=== PATIENT | male | born 2000 | race Caucasian/White ===

== ENCOUNTER 2023-02-11 12:19 | Emergency (ER) | payer OTHER, SELFPAY ==
[2023-02-11 12:28] VITALS: BP 128/74; PULSE 84; RESP 16; TEMP 37; O2SAT 100; BMI 32.6
--- NOTE | 2023-02-11 13:08 | ED_ITS ---
HPI - General Adult General Chief complaint: Ear/Nose/Throat Problem Stated complaint: L ear pain Time Seen by Provider: 02/11/23 13:01 Source: patient Mode of arrival: ambulatory Limitations: no limitations History of Present Illness HPI narrative: 22-year-old male presenting today concerned about left-sided ear pain. Pain is been present for 2 days. It is not constant. It comes and goes. It is made worse by chewing. He denies any changes in his hearing and no ear drainage. No fevers or chills. No sore throat. No trauma to the ear. Related Data Home Medications Medication Instructions Recorded Confirmed loratadine 10 mg tablet (Claritin) 10 mg PO DAILY 02/11/23 02/11/23 Allergies Allergy/AdvReac Type Severity Reaction Status Date / Time No Known Drug Allergies Allergy Verified 02/11/23 12:27 Review of Systems Status of ROS: Reports: 10 or more systems reviewed and unremarkable except as noted in History and below Exam Narrative: Exam Narrative: Well-nourished well-developed patient in no acute distress. Alert and oriented. Answers questions appropriately. Mood and affect are appropriate. Thoughts a re goal oriented and rational. No tangential or magical thinking noted. Patient speaks in full sentences without needing to catch his breath. Voice sounds normal, is not congested. HEENT: Normocephalic atraumatic. Pupils are equally round reactive to light. Extraocular muscles are intact. Conjunctivae are moist without any icterus noted. Moist mucous membranes. Posterior pharynx is normal. Neck is soft without any lymphadenopathy or thyromegaly. No masses are appreciated. TMs are clear bilaterally. Ear canals are normal without swelling or erythema. No foreign bodies are visualized in the ear canals. He has mild discomfort with opening and closing the jaw. Skin: Well perfused without any obvious rashes. Const: Vital Signs, click to edit/add: Vital Signs - 24 hr 02/11/23 12:28 Temperature 98.6 F Pulse Rate [Pulse Oximeter] 84 Respiratory Rate 16 Blood Pressure [Ri ght Upper Arm] 128/74 Pulse Oximetry 100 Oxygen Delivery Me thod Room Air Course Vital Signs Vital signs: Initial Vital Signs Temperature 98.6 F 02/11/23 12:28 Temperature Source Temporal Artery Scan 02/11/23 12:28 Pulse Rate 84 02/11/23 12:28 Respiratory Rate 16 02/11/23 12:28 Blood Pressure 128/74 02/11/23 12:28 Blood Pressure Mean 92 02/11/23 12:28 Blood Pressure Position Sitting 02/11/23 12:28 Pulse Oximetry 100 02/11/23 12:28 Oxygen Delivery Method Room Air 02/11/23 12:28 Vital Signs Temperature 98.6 F 02/11/23 12:28 Pulse Rate 84 02/11/23 12:28 Respiratory Rate 16 02/11/23 12:28 Blood Pressure 128/74 02/11/23 12:28 Pulse Oximetry 100 02/11/23 12:28 Oxygen Delivery Method Room Air 02/11/23 12:28 Temperature 98.6 F 02/11/23 12:28 Pulse Rate 84 02/11/23 12:28 Respiratory Rate 16 02/11/23 12:28 Blood Pressure 128/74 02/11/23 12:28 Pulse Oximetry 100 02/11/23 12:28 Oxygen Delivery Method Room Air 02/11/23 12:28 Medical Decision Making MDM Narrative Medical decision making narrative: 22-year-old male with ear pain, there is no evidence of infection visualized. No changes in his hearing. He does have mild discomfort with opening and closing his mouth, question TMJ inflammation. We discussed heating pad, ibuprofen and reasons for follow-up. Discharge Plan Discharge Clinical Impression: Ear pain Patient Disposition: Home, Self-Care Condition: Stable Additional Instructions: Your ear exam was normal today. There is no evidence of infection. Question a inflammation of your temporomandibular joint which is the joint this is just in front of the ear. At this time recommend using a heating pad to the sore area as needed, do not apply heat directly to skin. Okay to use ibuprofen 600 mg with meals as needed. If pain worsens, follow up with primary care. Prescriptions: No Action loratadine [Claritin] 10 mg tablet 10 mg PO DAILY Stand Alone Forms: [employer] Info Instructions
== END 2023-02-11 13:18 | disposition home or self-care (01) ==
LOC: ED 13:17
PROVIDERS: Emergency Provider Family Medicine
DX: H92.02 Otalgia, left ear (principal)
CPT/HCPCS: 99282; 99283

== ENCOUNTER 2023-04-21 10:48 | Emergency (ER) | payer OTHER, SELFPAY ==
[2023-04-21 11:02] VITALS: BP 110/75; PULSE 105; TEMP 37.3; O2SAT 97; BMI 29.1
[2023-04-21 11:37] LABS: Strep A DNA Probe* NOT DETECTED (Not Detectd)
[2023-04-21 11:50] LABS: PCR FLU A Negative PCR FLU A (Negative); PCR FLU B POSITIVE PCR FLU B (Negative); PCR RSV Negative PCR RSV (Negative); SARS PCR* Negative SARS-CoV-2 (Negative)
--- NOTE | 2023-04-21 13:00 | ED.FEVER ---
HPI - Fever General Date Seen: 04/21/23 Chief Complaint: Fever Stated Complaint: Fever, sore throat, ear pain Time Seen by Provider: 04/21/23 12:05 Source: patient Mode of arrival: ambulatory Limitations: no limitations History of Present Illness HPI Narrative: Patient is a 22-year-old male presented emergency depart for sore throat and fever for the past 2 days. He has been taking Tylenol ibuprofen as needed to treat his symptoms. Has been eating and drinking without issues. Denies chest pain, shortness of breath, abdominal pain, nausea, vomiting, weakness, numbness, headache, vision changes. Is not aware of any sick contacts but does states he had a Special [employer] turning when he was helping on over the weekend. No other symptoms right now. States he has previously had symptoms like this and was told it was viral infection. No other concerns noted at this time Related Data Home Medications Medication Instructions Recorded Confirmed loratadine 10 mg tablet (Claritin) 10 mg PO DAILY 02/11/23 02/11/23 Previous Rx's Medication Instructions Recorded oseltamivir 75 mg capsule (Tamiflu) 75 mg PO BID 5 days #10 caps 04/21/23 Allergies Allergy/AdvReac Type Severity Reaction Status Date / Time No Known Drug Allergies Allergy Verified 02/11/23 12:27 Review of Systems Status of ROS Reports: 10 or more systems reviewed and unremarkable except as noted in History and below [facility] Social History Do you use any of these nicotine containing products: None Second hand tobacco smoke exposure: No How often do you have a drink containing alcohol: never AUDIT-C Alcohol total score: 0 Non-prescribed substance use: denies use service: No Exam Narrative Exam Narrative: Const: Well-nourished, Well-developed, in no distress Eyes: PERRL, no conjunctival injection, and symmetrical lids HENT: Atraumatic external nose and ears. Moist mucous membranes. Uvula midline, no tonsillar swelling or exudates Neck: Symmetric, trachea midline, No thyromegaly. CVS: RRR, No murmurs or gallops. Peripheral pulses 2+ and equal in all extremities RESP: Unlabored respiratory effort. Clear to auscultation bilaterally. GI: Nontender/Nondistended, No rebound or guarding. MSK:Extremities w/o deformity, Normal Active ROM Skin: Warm, Dry. No rashes or lesions. Neuro: Normal Muscle tone, No focal neurological deficits. Psych: Awake, Alert, & Oriented x3. Appropriate mood and affect. Const Vital Signs, click to edit/add: Vital Signs - 24 hr 04/21/23 11:02 Temperature 99.1 F Pulse Rate [Pulse Oximeter] 105 H Blood Pressure [Right Upper Arm] 110/75 Pulse Oximetry 97 Oxygen Delivery Method Room Air Course Vital Signs Vital signs: Initial Vital Signs Temperature 99.1 F 04/21/23 11:02 Temperature Source Temporal Artery Scan 04/21/23 11:02 Pulse Rate 105 H 04/21/23 11:02 Pulse Rhythm Regular 04/21/23 11:02 Blood Pressure 110/75 04/21/23 11:02 Blood Pressure Mean 86 04/21/23 11:02 Blood Pressure Position Sitting 04/21/23 11:02 Pulse Oximetry 97 04/21/23 11:02 Oxygen Delivery Method Room Air 04/21/23 11:02 Vital Signs Temperature 99.1 F 04/21/23 11:02 Pulse Rate 105 H 04/21/23 11:02 Blood Pressure 110/75 04/21/23 11:02 Pulse Oximetry 97 04/21/23 11:02 Oxygen Delivery Method Room Air 04/21/23 11:02 Temperature 99.1 F 04/21/23 11:02 Pulse Rate 105 H 04/21/23 11:02 Blood Pressure 110/75 04/21/23 11:02 Pulse Oximetry 97 04/21/23 11:02 Oxygen Delivery Method Room Air 04/21/23 11:02 MDM - Fever MDM Narrative Medical decision making narrative: Patient is a 22-year-old male presenting to the emergency department for viral symptoms. He is slightly tachycardic initially but restless vital showed no concerning findings. Patient is not showing signs of peritonsillar abscess, Thien angina, retropharyngeal abscess or any other concerning oral pharynx or deep neck space abscesses. Imaging is not necessary. Do not believe further workup past they strep swab and COVID/flu/RSV as needed. Do not think he needs chest x-ray at this time. Patient is positive for influenza type B. Will be discharged home with Tamiflu. Lab Data Labs: Lab Results 04/21/23 Range/Units 11:05 SARS-CoV-2 (PCR) Negative SARS-CoV-2 (Negative) Influenza Type A (PCR) Negative PCR FLU A (Negative) Influenza Type B (PCR) POSITIVE PCR FLU B A (Negative) RSV (PCR) Negative PCR RSV (Negative) Group A Strep DNA NOT DETECTED (Not Detectd) Discharge Plan Discharge Clinical Impression: Influenza Patient Disposition: Home, Self-Care Condition: Stable Instructions: Influenza (DC) Additional Instructions: Take the Tamiflu as directed. Return to emergency department for new or worsening symptoms Prescriptions: New oseltamivir [Tamiflu] 75 mg capsule 75 mg PO BID 5 Days Qty: 10 0RF No Action loratadine [Claritin] 10 mg tablet 10 mg PO DAILY Follow Up/Referrals: Provider,Not a Local [Primary Care Provider] - Stand Alone Forms: [employer] Info Instructions
== END 2023-04-21 13:13 | disposition home or self-care (01) ==
PROVIDERS: Emergency Provider Student in an Organized Health Care Education/Training Program
DX: J10.1 Influenza due to other identified influenza virus with other respiratory manifestations (principal)
CPT/HCPCS: 87631; 87651; 99282; 99283